=== PATIENT | female | born 1935 | race Caucasian/White ===

== ENCOUNTER → 2019-02-19 | Outpatient (CLI) | payer MEDICARE, BC ==
--- NOTE | 2019-02-19 16:56 | RAD ---
Right knee radiograph 02/19/2019 12:00 AM INDICATION: Right knee pain with stiffness COMPARISON: None available. TECHNIQUE: 3 views the right knee including standing bilateral AP views of the knees. FINDINGS: Left total knee arthroplasty is present. There is advanced medial femorotibial joint space narrowing with subcortical sclerosis and marginal ossified ptosis. There is no acute fracture although there is mild remodeling of the medial femoral condyle. There is moderate patellofemoral joint space narrowing with marginal osteophytosis. No significant knee joint effusion. Phleboliths are identified within the ventral soft tissues. Vascular calcific effusions are present. IMPRESSION: Advanced osteoarthrosis of the right knee. No acute fracture or dislocation. Electronically signed by: Jazmín Lopez MD (02/19/2019 4:53 PM) [id number]
== END | disposition home or self-care (01) ==
LOC: RAD 14:10
PROVIDERS: ATTEND Orthopaedic Surgery
DX: M17.11 Unilateral primary osteoarthritis, right knee (principal)
CPT/HCPCS: 73562